=== PATIENT | male | born 1990 | race Caucasian/White ===

== ENCOUNTER 2022-09-08 06:50 | Emergency (ER) | payer MEDICAID, SELFPAY ==
--- NOTE | ~2022-09-08 | CT_ITS ---
EXAMINATION: CT SOFT TISSUE NECK WITHOUT CONTRAST CLINICAL INFORMATION: Difficulty swallowing. COMPARISON: None TECHNIQUE: Helical imaging was performed in the axial plane with generation of coronal and sagittal reformatted images. This CT examination was performed using dose optimization techniques as appropriate, variously including the following: *Automated exposure control *Adjustment of mA and/or kV according to patient size (this includes techniques or standardized protocols for targeted exams where dose is matched to indication/reason for exam; i.e. extremities or head) *Use of iterative reconstruction technique DLP: 612 mGy-cm FINDINGS: The soft palate appears prominent and is either redundant or mildly edematous. The nasopharyngeal soft tissues are also prominent. The oral cavity and remainder of the pharyngeal mucosal space appear relatively normal on this limited noncontrast study. The laryngeal structures are unremarkable. No pathologically enlarged cervical lymph nodes are visible. There are scattered internal jugular chain lymph nodes measuring up to 1 cm in long axis dimension in the axial plane. The parotid and submandibular glands are normal. No abnormal fluid collection is seen. The orbits are normal. The thyroid gland is heterogeneous in attenuation without a discrete visible lesion. The imaged mediastinum and visualized axillae are unremarkable. No acute osseous abnormality is seen. There is a rightward curvature of the cervical spine. The imaged portions of the lungs are clear with mild emphysematous changes. There is periapical disease associated with the tooth roots of the left first maxillary molar. Scattered dental caries are visible. There is periodontal disease of the right second mandibular molar as well. The TMJs are normal. The middle ear cavities and mastoid air cells are well aerated. The imaged portions of the brain demonstrate no acute abnormality. There is a small fluid level in the right maxillary antrum with mild circumferential mucosal wall thickening. Moderate ethmoid sinus mucosal thickening evident bilaterally. There are aerosolized secretions in the right sphenoid sinus. Rightward nasal septal deviation noted. CT/CT soft tissue neck wo IV con IMPRESSION: Limited noncontrast study. Questionable redundancy of the soft palate versus edematous change and prominence of the adenoid tonsils with subsequent significant narrowing of the nasopharyngeal airway. Recommend correlating with direct visual inspection. No bulky cervical adenopathy on this limited noncontrast study. No fluid collections. Nonspecific heterogeneity of the thyroid gland without enlargement. Numerous dental caries and scattered periodontal and periapical lucencies, as described. Recommend followup dental evaluation. Small fluid level in the right maxillary antrum with mild mucosal wall thickening. Moderate ethmoid sinus disease. Correlate for any acute symptoms.
[2022-09-08 06:55] VITALS: BP 140/80; PULSE 87; O2SAT 100
[2022-09-08 07:26] VITALS: BP 137/80; PULSE 96; RESP 16; TEMP 36.6; O2SAT 99; BMI 27.4
[2022-09-08 07:49] LABS: Strep A Nucleic Acid Negative (Negative)
--- NOTE | 2022-09-08 08:26 | ED_ITS ---
HPI - General Adult General Chief complaint: General Medical Stated complaint: flu like symptons/sob Time Seen by Provider: 09/08/22 08:25 Source: patient Mode of arrival: ambulatory Limitations: no limitations History of Present Illness HPI narrative: Patient is a 32 year old assigned male at with no reported medical history presenting to the emergency department today with possible throat swel ling. Patient states that yesterday he was diagnosed with the flu and attempted to have tamiflu filled but couldn't get it filled in [place] with [place] insurance. Patient states that he now feels as though his throat is swelling and he would like it to be checked. Patient denies any dizziness, lightheadedness, abdominal pain, nausea, vomiting, fever, chills, blurry vision, double vision, loss of vision, chest pain, difficulty breathing, shortness of breath, back pain, night sweats, pain with urination, increased urinary frequency, increased urinary urgency, blood in his urine or stool, syncope or a near syncopal episode, recent trauma or falls, bowel incontinence, bladder incontinence, bowel retention, bladder retention, or any other complaints at this time. Onset (ago): day(s) (2) Severity: mild Severity scale (1-10): 3 Quality: dull Relieving factors: none Exacerbating factors: none Associated symptoms: denies other symptoms Treatments prior to arrival: none Related Data Previous Rx's Medication Instructions Recorded doxycycline hyclate 100 mg tablet 100 mg PO BID 7 days #14 tabs 09/08/22 lidocaine HCl 2 % mucosal solution 1.2 ml mucous membrane BID PRN 09/08/22 (Lidocaine Viscous) pain #100 mL prednisone 20 mg tablet 20 mg PO DAILY 7 days #7 tabs 09/08/22 Allergies Allergy/AdvReac Type Severity Reaction Status Date / Time citalopram [From Celexa] Allergy Rash Verified 09/08/22 07:25 Review of Systems Constitutional: Constitutional: Reports no additional constitutional complaints, Denies chills, Denies fever(s) and Denies night sweats Eyes: Eyes: Reports no additional eye complaints, Denies blurry vision, Denies change in vision, Denies diplopia, Denies eye discharge, Denies loss of vision and Denies eye pain ENT: Denies dizziness and Reports sore throat Cardiovascular: Cardiovascular: Reports no additional cardiovascular complaints, Denies chest pain, Denies lightheadedness, Denies Loss of Consciousness and Denies dyspnea Respiratory: Respiratory: Reports no additional respiratory complaints and Denies dyspnea Gastrointestinal: Gastrointestinal: Reports no additional gastrointestinal complaints, Denies abdominal pain, Denies melena, Denies hematochezia, Denies change in bowel habits and Denies change in stool character Genitourinary: Genitourinary: Reports no additional male genitourinary complaints, Denies hematuria, Denies oliguria, Denies difficulty urinating, Denies dysuria, Denies urinary frequency, Denies urinary hesitancy, Denies urinary incontinence and Denies urinary urgency Musculoskeletal: Musculoskeletal: Reports no additional musculoskeletal complaints, Denies numbness and Denies tingling Neurologic: Denies dizziness, Denies loss of vision, Denies numbness and Denies tingling Psychiatric: Psychiatric: Reports no additional psychiatric complaints Endocrine: Endocrine: Reports no additional endocrine complaints Hematologic/Lymphatic: Hematologic/Lymphatic: Reports no additional hematologic/lymphatic complaints Allergic/Immunologic: Allergic/Immunologic: Reports no additional allergic/immunologic complaints [facility] Past Medical History Attestation statement: The following information was validated with the patient. Source: old records reviewed Social History Social History Advance Directives: No Advance Directives Information Provided: No Physical Exam ED Vital Signs: Vital Signs - 24 hr 09/08/22 07:26 Temperature 98 F Pulse Rate 96 Respiratory Rate 16 Blood Pressure 137/80 Pulse Oximetry 99 Oxygen Delivery Method Room Air BMI result Body Mass Index 27.4 Const General: cooperative, no acute distress, alert and awake Nutritional Appearance: well nourished Orientation/consciousness: patient oriented x3 Limitations: no limitations [facility] Head: Yes normal to inspection and Yes atraumatic Ears: hearing grossly normal bilaterally and external ears normal General nose exam: Normal external nose present, no nasal discharge noted and no epistaxis Face and sinus: Yes normal facial exam, No abrasion and No laceration Mouth: Normal oral and palatal mucosa present, no drooling and no muffled voice Throat: Yes posterior oropharynx normal Eyes General: appearance normal, both eyes and all related structures Periorbital: periorbital findings normal Eyelids: Yes eyelids normal Conjunctivae: conjunctivae normal Pupils: Equal, round and reactive pupils present EOM: EOMs intact bilaterally Neck Neck: Yes normal visual inspection, Yes full ROM and Yes no lymphadenopathy Chest Chest palpation & inspection: normal inspection of the chest Resp Effort & Inspection: normal respiratory effort and able to speak in complete sentences Auscultation: clear to auscultation bilaterally Cardio Rate: regular rate Rhythm: regular rhythm GI Inspection: Yes normal to inspection Neuro General: patient oriented x3 and moves all extremities Cranial nerves: Yes Equal, round and reactive pupils present Cognition (Neuro): normal cognition Motor exam (neuro): 5/5 motor strength present throughout Sensory Exam: Normal double simultaneous stimulation for sensation Coordination: [id number] test normal Extrem General: Yes normal to inspection, Yes full ROM and Yes capillary refill normal Psych Appearance: grossly normal Mental Status: mental status grossly normal Affect: normal affect Attitude: cooperative Thought process: Normal thought process present Thought content: Normal thought content present Insight: Good insight present (Psych) Medications Administered Discontinued Medications Generic Name Dose Route Start Last Admin Trade Name Ibanq PRN Reason Stop Dose Admin Lidocaine HCl 15 ml 09/08/22 08:35 09/08/22 08:45 Lidocaine Hcl Viscous 2 % 15 Ml Solution MUCOUS MEM 09/08/22 08:36 15 ml ONCE ONE Administration Methylprednisolone Sodium Succinate 60 mg 09/08/22 08:35 09/08/22 08:45 Methylprednisolone Sod Succ 125 Mg/2 Ml Vial IM 09/08/22 08:36 60 mg ONCE ONE Administration Medical Decision Making Medical Decision Making [facility] Narrative: Patient is a 32 year old assigned male at with no reported medical history presenting to the emergency department today with a sore throat. Patient's physical exam showed extensive poor dentition but was otherwise unremarkable. Patient's rapid strep swab was negative. Patient's soft tissue neck CT showed no acute process in the throat but did show signs of sinusitis. I explained my physical exam findings as well as all test results to the patient. I answered all questions asked by the patient. I stressed the importance of the patient taking his medication as prescribed. I stressed the importance of the patient following up with his primary care provider. I stressed the importance of the patient returning to the emergency department immediately if his symptoms were to worsen or if he were to develop any dizziness, shortness of breath, difficulty breathing, chest pain, blurry vision, loss of vision, nausea, vomiting, abdominal pain, fever, chills, back pain, or any other complaints. Patient verbalized agreement and understanding with this treatment plan and discharge. Differential Diagnoses: Differential diagnosis (sinusitis, influenza) Differential Diagnosis: The differential diagnosis associated with the patient?s presentation includes: Discharge Plan Discharge Clinical Impression: Influenza, Sinusitis Patient Disposition: Home, Self-Care Instructions: Influenza (ED) Additional Instructions: Follow up with your primary care provider. Return to the emergency department immediately if your symptoms worsen or if you develop any dizziness, shortness of breath, difficulty breathing, chest pain, blurry vision, loss of vision, nausea, vomiting, abdominal pain, fever, chills, back pain, or any other complaints. Prescriptions: New doxycycline hyclate 100 mg tablet 100 mg PO BID 7 Days Qty: 14 0RF lidocaine HCl [Lidocaine Viscous] 2 % solution 1.2 ml mucous membrane BID PRN (Reason: pain) Qty: 100 0RF prednisone 20 mg tablet 20 mg PO DAILY 7 Days Qty: 7 0RF Referrals: [facility] [Provider Group] (Call to establish and follow up with a primary care provider. If you already have a primary care provider, please follow up with them. ) [facility] [Provider Group] (Call to establish and follow up with a primary care provider. If you already have a primary care provider, please follow up with them. ) [facility] [Provider Group] (Call to establish and follow up with a primary care provider. If you already have a primary care provider, please follow up with them. ) Stand Alone Forms: Work/School Release Print Language: Arabic
[2022-09-08] MEDS: methylPREDNISolone Sod Succ 125 MG/2 ML VIAL 60 MG IM (08:45)
[2022-09-08] MEDS: Lidocaine HCl Viscous 2 % 15 ML SOLUTION MUCOUS MEM (08:45)
[2022-09-08 10:08] VITALS: BP 128/57; PULSE 89; RESP 14; TEMP 37.3; O2SAT 99
--- NOTE | 2022-09-08 10:16 | PC.NURSE ---
provider updated patient on results of CT SCAN pt aware and agreeable to dc plan. pt reports feeling better after receiving medications here in the ED. aware that he will be sent home on these medications as well. airway patent. speaking in full clear sentences. managing secretions. no acute distress noted.
== END 2022-09-08 10:26 | disposition home or self-care (01) ==
PROVIDERS: Emergency Provider Emergency Medicine
DX: J10.1 Influenza due to other identified influenza virus with other respiratory manifestations (principal); J32.9 Chronic sinusitis, unspecified; R06.02 Shortness of breath; M54.2 Cervicalgia; Z79.899 Other long term (current) drug therapy
CPT/HCPCS: 36415; 70490; 87651; 96372; 99283; 99284; J2930

== ENCOUNTER 2022-09-10 08:45 | Emergency (ER) | payer MEDICAID, SELFPAY ==
--- NOTE | 2022-09-10 08:51 | ED_ITS ---
HPI - Arrhythmia/Palpitations General Chief Complaint: Arrhythmia/Palpitations Stated Complaint: SVT/Flu Time Seen by Provider: 09/10/22 08:49 Source: patient Mode of arrival: ambulatory Limitations: no limitations History of Present Illness HPI narrative: Patient 30 minutes of palpitations, was diagnosed with the flu, 5 days of symptoms. Patient is very anxious. complaint: rapid heart beat Onset (ago): minute(s) Duration: now resolved Severity: moderate Arrhythmia history: SVT Associated symptoms: shortness of breath Treatments prior to arrival: vagal maneuvers Related Data Previous Rx's Medication Instructions Recorded doxycycline hyclate 100 mg tablet 100 mg PO BID 7 days #14 tabs 09/08/22 lidocaine HCl 2 % mucosal solution 1.2 ml mucous membrane BID PRN 09/08/22 (Lidocaine Viscous) pain #100 mL prednisone 20 mg tablet 20 mg PO DAILY 7 days #7 tabs 09/08/22 atenolol 25 mg tablet 25 mg PO DAILY #10 tabs 09/10/22 Allergies Allergy/AdvReac Type Severity Reaction Status Date / Time citalopram [From Celexa] Allergy Rash Verified 09/08/22 07:25 Review of Systems Constitutional: Constitutional: Reports no additional constitutional complaints Eyes: Eyes: Reports no additional eye complaints ENT: Denies dizziness Cardiovascular: Cardiovascular: Reports no additional cardiovascular c omplaints Respiratory: Respiratory: Reports as per HPI Gastrointestinal: Gastrointestinal: Reports no additional gastrointestinal complaints Musculoskeletal: Musculoskeletal: Reports no additional musculoskeletal complaints Integumentary/Breasts: Skin/Breast: Denies rash Neurologic: Reports system reviewed and no additional complaints, except as documented, Denies dizziness and Denies Sensory deficit (Neuro) Psychiatric: Psychiatric: Denies anxiety [facility] Social History Social History Advance Directives: No Advance Directives Information Provided: No Physical Exam Vital Signs: Vital Signs: Last Vital Signs Temp 98 F 09/10/22 08:53 Pulse 76 09/10/22 09:01 Resp 13 09/10/22 09:01 BP 129/74 09/10/22 09:01 Pulse Ox 98 09/10/22 09:01 O2 Del Method 09/10/22 09:01 BMI result Body Mass Index 27.4 Const: Other: very anxious General: healthy appearing Nutritional Appearance: average body habitus Orientation/consciousness: oriented to person and patient oriented x3 Limitations: no limitations HEENT: Head: Yes normal to inspection Ears: external ears normal General nose exam: Normal external nose present Mouth: Normal oral and palatal mucosa present and oropharynx normal Throat: Yes posterior oropharynx normal Eyes: General: appearance normal, both eyes and all related structures Neck: Other: supple Neck: Yes normal visual inspection Chest: Chest palpation & inspection: normal inspection of the chest Resp: Auscultation: clear to auscultation bilaterally Cardio: Jugular venous distension: no JVD Rate: regular rate Rhythm: regular rhythm Heart sounds: S1 normal heart sound present and S2 normal heart sound present GI: Inspection: Yes normal to inspection Palpation (GI): Soft to palpation, nontender and No hepatosplenomegaly present Auscultation: normal bowel sounds : General: Yes no CVA tenderness Back/Spine/Pelvis: Back: no CVA tenderness Skin: General skin exam: no rashes or lesions noted Neuro: General: oriented to person and patient oriented x3 Cranial nerves: Yes CN's II-XII intact bilaterally Motor exam (neuro): 5/5 motor strength pre sent throughout Sensory Exam: No Sensory deficit (Neuro) Extrem: General: Yes normal to inspection Psych: Appearance: grossly normal Course Reevaluation(s) Reevaluation #1: Patient very anxous will place on low dose betablocker for another 10 days for the duration of his viral illness Time: 10:33 Medical Decision Making Medical Decision Making Independent interpretation of EKG, rhythm strip, radiology study: Independent interp EKG,rhythm strip, radiology study I performed an independent interpretation of the: EKG My interpretation is sinus 70, no st or twave changes Discharge Plan Discharge Clinical Impression: Palpitations, Influenza A Patient Disposition: Home, Self-Care Instructions: Heart Palpitations (ED), Influenza (ED) Prescriptions: New atenolol 25 mg tablet 25 mg PO DAILY Qty: 10 0RF No Action doxycycline hyclate 100 mg tablet 100 mg PO BID 7 Days Qty: 14 0RF lidocaine HCl [Lidocaine Viscous] 2 % solution 1.2 ml mucous membrane BID PRN (Reason: pain) Qty: 100 0RF prednisone 20 mg tablet 20 mg PO DAILY 7 Days Qty: 7 0RF Referrals: Physician,Unknown J [Primary Care Provider] - 1 week
[2022-09-10 08:53] VITALS: BP 129/74; PULSE 76; RESP 18; TEMP 36.6; O2SAT 99; BMI 27.4
--- NOTE | 2022-09-10 08:53 | ECG_ITS ---
Test Reason : palpations Blood Pressure : / mmHG Vent. Rate : 070 BPM Atrial Rate : 070 BPM P-R Int : 136 ms QRS Dur : 084 ms QT Int : 382 ms P-R-T Axes : 071 035 025 degrees QTc Int : 412 ms Normal sinus rhythm with sinus arrhythmia Normal ECG No previous ECGs available Referred By: Max Carmona Electronically Signed By:JOELLEN LEVIN MD
[2022-09-10 09:01] VITALS: BP 129/74; PULSE 76; RESP 13; O2SAT 98
[2022-09-10 09:10] LABS: MANUAL DIFF FLAG NO
[2022-09-10 09:13] LABS: Basophils Percent Auto 0.2 % (0-2); Eosinophils Percent Auto 0.1 % (0-4); Hematocrit 42.7 % (42.0-52.0); Hemoglobin 15.2 g/dl (14.0-18.0); Imm Gran Abs Auto 0.07 X10*3/uL (0.00-0.03); Imm Gran Pct Auto 0.5 % (0.0-0.4); Lymphocytes Absolute Auto 4.5 X10*3/uL (1.2-4.9); Lymphocytes Percent Auto 33.6 % (20-40); Mean Corpuscular HGB Conc 35.6 g/dl (31.0-36.0); Mean Corpuscular Hemoglobin 30.3 pg (27.0-33.0); Mean Corpuscular Volume 85.2 fL (80.0-98.0); Mean Platelet Volume 8.9 fL (9.4-12.4); Monocytes Absolute Auto 0.9 X10*3/uL (0.1-1.2); Monocytes Percent Auto 6.5 % (2-11); Neutrophils Absolute Auto 7.9 x10*3/uL (2.0-8.3); Neutrophils Percent Auto 59.1 % (45-73); Platelet Count 273 X10*3/uL (160-400); Red Blood Count 5.01 X10*6/uL (4.60-5.80); Red Cell Distribution Width 12.8 % (11.0-16.0); White Blood Count 13.4 X10*3/uL (4.8-10.8)
[2022-09-10 09:28] LABS: Anion Gap 14 (12-20); Blood Urea Nitrogen 18 mg/dL (9-16); Calcium 9.4 mg/dL (8.4-10.2); Carbon Dioxide 23 mmol/L (22-29); Chloride 110 mmol/L (96-108); Creatinine Clr Calc Pharmacy 118.9; Estimated Glomerular Filt Rate > 60; Glucose Random 90 mg/dL (60-115); Potassium 4.5 mmol/L (3.3-5.1); Sodium 142 mmol/L (135-145)
[2022-09-10 09:36] LABS: Troponin-I High Sensitivity 7.3 ng/L (<3.5-35.0)
[2022-09-10] MEDS: atenoloL 25 MG TABLET PO (10:54)
[2022-09-10 10:55] VITALS: BP 124/71; PULSE 73; RESP 16; O2SAT 97
== END 2022-09-10 11:07 | disposition home or self-care (01) ==
PROVIDERS: Emergency Provider Emergency Medicine
DX: J10.1 Influenza due to other identified influenza virus with other respiratory manifestations (principal); R00.2 Palpitations; Z20.822 Contact with and (suspected) exposure to COVID-19; Z79.899 Other long term (current) drug therapy
CPT/HCPCS: 36415; 80048; 84484; 85025; 93005; 99283; 99284

== ENCOUNTER 2022-09-12 20:56 | Emergency (ER) | payer MEDICAID, SELFPAY ==
[2022-09-12 21:01] VITALS: BP 115/68; PULSE 70; RESP 17; TEMP 36.7; O2SAT 99; BMI 27.4
--- NOTE | 2022-09-12 21:18 | ED_ITS ---
HPI - URI/Sore Throat General Chief Complaint: Upper Respiratory Symptoms Stated Complaint: fever,wheezing,sob,sore throat and glands Time Seen by Provider: 09/12/22 21:13 Source: patient, EMS, RN notes reviewed and old records reviewed Mode of arrival: ambulatory Limitations: no limitations History of Present Illness HPI Narrative: 32-year-old male with no significant past medical history is here today for complaining of sore throat, difficulty swallowing and wheezing. This is his 3rd visit to this lower in the last week and half. Patient was diagnosed with influenza about couple weeks ago, was unable to fill her script for Tamiflu as he does not have [place] insurance. Patient continues with sore throat and swelling of his gland. Soft tissue neck CT scan was done on September 08 that that not show any acute processes except for right mastoid area swelling. Patient denies any SOB, CP, PND, abdominal pain, nausea, vomiting, fever, chills, blurry vision. Patient states that he feels like he is unable to get better. MD elicited complaint: sore throat Onset (ago): week(s) Severity: moderate Related Data Previous Rx's Medication Instructions Recorded doxycycline hyclate 100 mg tablet 100 mg PO BID 7 days #14 tabs 09/08/22 lidocaine HCl 2 % mucosal solution 1.2 ml mucous membrane BID PRN 09/08/22 (Lidocaine Viscous) pain #100 mL prednisone 20 mg tablet 20 mg PO DAILY 7 days #7 tabs 09/08/22 atenolol 25 mg tablet 25 mg PO DAILY #10 tabs 09/10/22 amoxicillin 875 mg-potassium 1 tab PO BID #14 tabs 09/12/22 clavulanate 125 mg tablet ibuprofen 600 mg tablet 600 mg PO Q8H PRN pain #20 tabs 09/12/22 Allergies Allergy/AdvReac Type Severity Reaction Status Date / Time citalopram [From Celexa] Allergy Rash Verified 09/12/22 21:01 Review of Systems Constitutional: Constitutional: Denies weight gain and Denies weight loss ENT: Reports system reviewed and no additional complaints, except as documented Cardiovascular: Cardiovascular: Reports no additional cardiovascular complaints Respiratory: Respiratory: Reports no additional respiratory complaints Gastrointestinal: Gastrointestinal: Reports no additional gastrointestinal complaints Genitourinary: Genitourinary: Reports no additional male genitourinary complaints Musculoskeletal: Musculoskeletal: Reports no additional musculoskeletal complaints Neurologic: Reports system reviewed and no additional complaints, except as documented Psychiatric: Psychiatric: Reports no additional psychiatric complaints Endocrine: Endocrine: Reports no additional endocrine complaints PMFSH Social History Social History Advance Directives: No Advance Directives Information Provided: No Physical Exam Vital Signs: Vital Signs: Last Vital Signs Temp 98.0 F 09/12/22 21:01 Pulse 70 09/12/22 21:01 Resp 17 09/12/22 21:01 BP 115/68 09/12/22 21:01 Pulse Ox 99 09/12/22 21:01 O2 Del Method 09/12/22 21:01 BMI result Body Mass Index 27.4 Const: General: healthy appearing, no acute distress and well developed Nutritional Appearance: well nourished Orientation/consciousness: patient oriented x3 HEENT: Head: Yes normal to inspection, Yes normocephalic and Yes atraumatic Ears: hearing grossly normal bilaterally, external ears normal, right TM abnormal and left TM abnormal General nose exam: Normal external nose present Face and sinus: Yes normal facial exam Mouth: Normal oral and palatal mucosa present, tongue normal and oropharynx normal Teeth and gingiva: poor dentition Throat: Yes posterior oropharynx normal, Yes tonsils normal and Yes uvula midline Eyes: General: appearance normal, both eyes and all related structures Neck: Neck: Yes normal visual inspection, Yes full ROM and Yes trachea midline Thyroid: Thyroid normal Resp: Effort & Inspection: normal respiratory effort, able to speak in complete sentences, no tracheal deviation and symmetric chest movement Auscultation: clear to auscultation bilaterally Cardio: Rate: regular rate Heart sounds: S1 normal heart sound present, S2 normal heart sound present, no gallops and no murmurs GI: Inspection: Yes normal to inspection and No distended Palpation (GI): Soft to palpation, not firm, nontender and No hepatosplenomegaly present Auscultation: normal bowel sounds : General: Yes no CVA tenderness Back/Spine/Pelvis: Back: no CVA tenderness Skin: General skin exam: elasticity normal, turgor normal and dry skin Neuro: General: patient oriented x3 Psych: Appearance: grossly normal Mental Status: mental status grossly normal Speech and movement: Normal speech and movement present Course Course Course Narrative: 32-year-old male with no significant past medical history is here today for complaining of sore throat, difficulty swallowing and wheezing. This is his 3rd visit to this lower in the last week and half. Patient was diagnosed with influenza about couple weeks ago, was unable to fill her script for Tamiflu as he does not have [place] insurance. Patient continues with sore throat and swelling of his gland. Soft tissue neck CT scan was done on September 08 that that not show any acute processes except for right mastoid area swelling. Patient denies any SOB, CP, PND, abdominal pain, nausea, vomiting, fever, chills, blurry vision. Patient states that he feels like he is unable to get better. Bilateral otitis media, right worse than left. Patient was given ketorolac IM and 1st dose of Augmentin. Reevaluation(s) Reevaluation #1: Patient reports to be feeling better after total. Will be sent home with Augmentin. Patient will call dental clinic. List of dental clinics provided to patient. Medications Administered Discontinued Medications Generic Name Dose Route Start Last Admin Trade Name Freq PRN Reason Stop Dose Admin Amoxicillin/Clavulanate Potassium 875 mg 09/12/22 21:30 09/12/22 21:37 Amoxicillin/Potassium Clav 875 Mg Tablet PO 09/12/22 21:31 875 mg ONCE ONE Administration Ketorolac Tromethamine 30 mg 09/12/22 21:26 09/12/22 21:36 Ketorolac Tromethamine 15 Mg/Ml Vial IVPUSH 09/12/22 21:27 30 mg ONCE ONE Administration Discharge Plan Discharge Clinical Impression: Upper respiratory infection, Otitis media, Pharyngitis Patient Disposition: Home, Self-Care Instructions: Pharyngitis (ED), Ear Infection (ED) Additional Instructions: You were seen here today for sore throat and swollen glands. You have your infection bilaterally worse on the right than left. You were given anti- inflammatory medication as well as antibiotic. Make sure that you take all the of the antibiotic till you finish. You may return to emergency department if your symptoms will get worse or if you experience any additional concerning symptoms. Please follow-up with a dentist. List of dental offices provided to you Prescriptions: New amoxicillin-pot clavulanate 875-125 mg tablet 1 tab PO BID Qty: 14 0RF ibuprofen 600 mg tablet 600 mg PO Q8H PRN (Reason: pain) Qty: 20 0RF No Action doxycycline hyclate 100 mg tablet 100 mg PO BID 7 Days Qty: 14 0RF lidocaine HCl [Lidocaine Viscous] 2 % solution 1.2 ml mucous membrane BID PRN (Reason: pain) Qty: 100 0RF prednisone 20 mg tablet 20 mg PO DAILY 7 Days Qty: 7 0RF atenolol 25 mg tablet 25 mg PO DAILY Qty: 10 0RF Discharge Date/Time: 09/12/22 22:08
[2022-09-12] MEDS: Ketorolac Tromethamine 15 MG/ML VIAL 30 MG IVPUSH (21:36)
[2022-09-12] MEDS: Amoxicillin/Potassium Clav 875 MG TABLET PO (21:37)
== END 2022-09-12 22:08 | disposition home or self-care (01) ==
PROVIDERS: Emergency Provider Emergency Medicine
DX: J02.9 Acute pharyngitis, unspecified (principal); H66.93 Otitis media, unspecified, bilateral
CPT/HCPCS: 96372; 99283; 99284; J1885

== ENCOUNTER 2022-09-14 08:24 | Emergency (ER) | payer MEDICAID, SELFPAY ==
[2022-09-14 08:29] VITALS: BP 127/88; PULSE 81; RESP 18; TEMP 35.9; O2SAT 97; BMI 27.4
--- NOTE | 2022-09-14 09:04 | ED_ITS ---
HPI - General Adult General Chief complaint: Skin/Abscess/Foreign Body Stated complaint: Mass growing on throat Time Seen by Provider: 09/14/22 08:39 Source: patient Mode of arrival: ambulatory History of Present Illness HPI narrative: 32-year-old male with a past medical history of influenza A, sinusitis treated with Doxycycline presenting to the ED complaining of continued painful lump to right neck x 1 week. Reports pain with swallowing. Patient states swelling initially started on left side and then progressed to right. Patient was evaluated in our ED on 09/08, 09/10, 09/12 for similar symptoms, had CT on 09/08 which showed sinusitis without other acute findings. Patient reports taking doxycycline, denies picking up any other Rx prescriptions. Denies fever, chills, SOB, intraoral swelling, recent dental procedures, difficulty/inability to swallow, ear pain Onset (ago): week(s) Related Data Previous Rx's Medication Instructions Recorded doxycycline hyclate 100 mg tablet 100 mg PO BID 7 days #14 tabs 09/08/22 lidocaine HCl 2 % mucosal solution 1.2 ml mucous membrane BID PRN 09/08/22 (Lidocaine Viscous) pain #100 mL prednisone 20 mg tablet 20 mg PO DAILY 7 days #7 tabs 09/08/22 atenolol 25 mg tablet 25 mg PO DAILY #10 tabs 09/10/22 amoxicillin 875 mg-potassium 1 tab PO BID #14 tabs 09/12/22 clavulanate 125 mg tablet ibuprofen 600 mg tablet 600 mg PO Q8H PRN pain #20 tabs 09/12/22 Allergies Allergy/AdvReac Type Severity Reaction Status Date / Time citalopram [From Celexa] Allergy Rash Verified 09/12/22 21:01 Review of Systems Review of Systems: Constitutional: No Fever, No Chills, No Fatigue, No Malaise ENT/Mouth: No Ear Pain, No Nasal Congestion, No Sinus Pain, No Hoarseness, + sore throat, No Rhinorrhea, No Swallowing Difficulty, +painful swallowing Eyes: No Eye Pain, No Swelling, No Redness Cardiovascular: No Chest Pain, No SOB, No Dyspnea on Exertion, No Orthopnea, No Edema, No Palpitations Respiratory: No Cough, No Sputum, No Wheezing, No Dyspnea Gastrointestinal: No Nausea, No Vomiting, No Diarrhea, No Constipation, No Abdominal pain Genitourinary: No Dysuria, No Urinary Frequency, No Hesitancy Musculoskeletal: No joint pain, No Myalgias, No Joint Swelling Skin: No Skin Lesions, No rash Neuro: No Weakness, NHo Dizziness, No Headache Yes all other systems are reviewed and are negative Constitutional: Constitutional: Reports as per [facility] [place] Past Medical History Attestation statement: The following information was validated with the patient. Social History Social History Advance Directives: No Advance Directives Information Provided: No Physical Exam ED Vital Signs: Vital Signs - 24 hr 09/14/22 08:29 Temperature 96.6 F L Pulse Rate 81 Respiratory Rate 18 Blood Pressure 127/88 Pulse Oximetry 97 Oxygen Delivery Method Room Air BMI result Body Mass Index 27.4 Const General: cooperative, healthy appearing, no acute distress, alert and awake Orientation/consciousness: patient oriented x3 Limitations: no limitations HENMT Other: + swollen tender lump to right submandibular area. No overlying erythema. No fluctuance/induration. No appreciable intraoral involvement Head: Yes normal to inspection and Yes atraumatic Ears: hearing grossly normal bilaterally, TM normal on the left, mastoids normal, TM abnormal dull on the right and unable to visualize TM on the right (Due to cerumen impaction, cleared) General nose exam: Normal external nose present Face and sinus: Yes normal facial exam Mouth: Normal oral and palatal mucosa present Teeth and gingiva: poor dentition Throat: Yes posterior oropharynx normal, Yes tonsils normal, Yes uvula midline, No peritonsillar mass and No uvula laterally displaced Eyes General: appearance normal, both eyes and all related structures EOM: EOMs intact bilaterally Neck Neck: Yes normal visual inspection, Yes full ROM, Yes no meningeal signs, Yes trachea midline, Yes supple and No anterior neck swelling Resp Effort & Inspection: normal respiratory effort, no respiratory distress, no stridor and no tracheal deviation Auscultation: clear to auscultation bilaterally and no wheezes Cardio Rate: regular rate Heart sounds: S1 normal heart sound present and S2 normal heart sound present Skin Rashes: no rashes Wounds: no wounds Neuro General: patient oriented x3, tone normal and no meningeal signs Gait exam (Neuro): Normal gait present Extrem General: Yes normal to inspection Course Course Course Narrative: -no leukocytosis. Labs otherwise reassuring. CRP minimally elevated to 0.99 Recommend patient continue taking previously prescribed antibiotic. Was given a dose of oral Decadron in the ED. Recommended close ENT follow-up. Results discussed with patient including worrisome signs and symptoms and strict return precautions, and when to return to the emergency department. They verbalized understanding and feel safe for discharge at this time. Medications Administered Discontinued Medications Generic Name Dose Route Start Last Admin Trade Name Freq PRN Reason Stop Dose Admin Dexamethasone Sodium Phosphate 10 mg 09/14/22 09:00 09/14/22 09:13 Dexamethasone Sod Phosphate 10 Mg/Ml Vial IVPUSH 09/14/22 09:01 10 mg ONCE ONE Administration Medical Decision Making Medical Decision Making MDM Narrative: 32-year-old male with a past medical history of influenza A, sinusitis treated with Doxycycline presenting to the ED complaining of continued painful lump to right neck x 1 week. On exam vital signs stable, NAD, nontoxic appearing, talking in complete sentences, no respiratory distress, no stridor, tender palpable lump to right submandibular area without fluctuance or induration, no overlying cellulitis. No appreciable intraoral involvement. Concern for ?Lymphadenopathy or mass. No evidence of [employer]IAN or parotitis. Right TM cloudy, patient currently on antibiotics. Case discussed with Dr. Tubbs Plan: Labs, p.o. Decadron, ENT follow-up, no need for repeat imaging at this time Differential Diagnoses: Differential diagnosis (As above) Lab Attestation: I reviewed the patient's lab results. Medical Decision Making Lab Data Result Diagrams: 09/14/22 09:14 09/14/22 09:14 Labs: Lab Results 09/14/22 09/14/22 09/14/22 Range/Units 09:14 09:14 09:14 WBC 8.8 (4.8-10.8) X10*3/uL RBC 5.46 (4.60-5.80) X10*6/uL Hgb 16.4 (14.0-18.0) g/dl Hct 46.6 (42.0-52.0) % MCV 85.3 (80.0-98.0) fL MCH 30.0 (27.0-33.0) pg MCHC 35.2 (31.0-36.0) g/dl RDW 12.3 (11.0-16.0) % Plt Count 283 (160-400) X10*3/uL MPV 8.4 L (9.4-12.4) fL Immature Gran % (Auto) 1.3 H (0.0-0.4) % Neut % (Auto) 52.0 (45-73) % Lymph % (Auto) 33.3 (20-40) % [place] % (Auto) 11.5 H (2-11) % Eos % (Auto) 1.6 (0-4) % Baso % (Auto) 0.3 (0-2) % Lymph # (Auto) 2.9 (1.2-4.9) X10*3/uL [place] # (Auto) 1.0 (0.1-1.2) X10*3/uL Eos # (Auto) 0.1 (0.0-0.4) X10*3/uL Baso # (Auto) 0.0 (0.0-0.2) X10*3/uL Abs Immat Gran (auto) 0.11 H (0.00-0.03) X10*3/uL Absolute Neuts (auto) 4.6 (2.0-8.3) x10*3/uL Absolute Nucleated RBC 0.000 (0.0-0.012) X10*3/uL Nucleated RBC % (auto) 0.0 (0.0-0.2) /100WBC ESR 7 (0-15) MM/HR Sodium 136 (135-145) mmol/L Potassium 4.4 (3.3-5.1) mmol/L Chloride 101 (96-108) mmol/L Carbon Dioxide 30 H (22-29) mmol/L Anion Gap 9 L (12-20) BUN 10 (9-16) mg/dL Creatinine 0.87 (0.5-1.4) mg/dL Estim Creat Clear Calc 120.2 Estimated GFR > 60 Random Glucose 86 (60-115) mg/dL Calcium 9.4 (8.4-10.2) mg/dL C-Reactive Protein 0.99 H (< or = 0.50) mg/dL Discharge Plan Discharge Clinical Impression: Lump in neck Patient Disposition: Home, Self-Care Instructions: Lymphadenopathy (ED) Additional Instructions: Your blood work is reassuring. Continue taking previously prescribed antibiotics. You need to follow with an ear nose throat specialist, call to make an appointment. If symptoms persist or worsen, he develops shortness of breath, difficulty or inability to swallow return to the emergency department Prescriptions: No Action amoxicillin-pot clavulanate 875-125 mg tablet 1 tab PO BID Qty: 14 0RF ibuprofen 600 mg tablet 600 mg PO Q8H PRN (Reason: pain) Qty: 20 0RF doxycycline hyclate 100 mg tablet 100 mg PO BID 7 Days Qty: 14 0RF lidocaine HCl [Lidocaine Viscous] 2 % solution 1.2 ml mucous membrane BID PRN (Reason: pain) Qty: 100 0RF prednisone 20 mg tablet 20 mg PO DAILY 7 Days Qty: 7 0RF atenolol 25 mg tablet 25 mg PO DAILY Qty: 10 0RF Referrals: Kanchan Mccarthy PA [Physician Convertible Top Installer] - Drew Horowitz PA-C [Physician Convertible Top Installer] - Cristina Mancia MD [Physician] - Interventions: ED Discharge Assessment Last Done: 09/14/22 10:50 Discharge Date/Time: 09/14/22 10:52
[2022-09-14] MEDS: dexAMETHasone sod phosphate 10 MG/ML VIAL IVPUSH (09:13)
[2022-09-14 09:18] LABS: MANUAL DIFF FLAG NO
[2022-09-14 09:26] LABS: Basophils Percent Auto 0.3 % (0-2); Eosinophils Absolute Auto 0.1 X10*3/uL (0.0-0.4); Eosinophils Percent Auto 1.6 % (0-4); Hematocrit 46.6 % (42.0-52.0); Hemoglobin 16.4 g/dl (14.0-18.0); Imm Gran Abs Auto 0.11 X10*3/uL (0.00-0.03); Imm Gran Pct Auto 1.3 % (0.0-0.4); Lymphocytes Absolute Auto 2.9 X10*3/uL (1.2-4.9); Lymphocytes Percent Auto 33.3 % (20-40); Mean Corpuscular HGB Conc 35.2 g/dl (31.0-36.0); Mean Corpuscular Volume 85.3 fL (80.0-98.0); Mean Platelet Volume 8.4 fL (9.4-12.4); Monocytes Percent Auto 11.5 % (2-11); Neutrophils Absolute Auto 4.6 x10*3/uL (2.0-8.3); Platelet Count 283 X10*3/uL (160-400); Red Blood Count 5.46 X10*6/uL (4.60-5.80); Red Cell Distribution Width 12.3 % (11.0-16.0); White Blood Count 8.8 X10*3/uL (4.8-10.8)
[2022-09-14 09:36] LABS: Anion Gap 9 (12-20); Blood Urea Nitrogen 10 mg/dL (9-16); C Reactive Protein 0.99 mg/dL (< or = 0.50); Calcium 9.4 mg/dL (8.4-10.2); Carbon Dioxide 30 mmol/L (22-29); Chloride 101 mmol/L (96-108); Creatinine Clr Calc Pharmacy 120.2; Estimated Glomerular Filt Rate > 60; Glucose Random 86 mg/dL (60-115); Potassium 4.4 mmol/L (3.3-5.1); Sodium 136 mmol/L (135-145)
[2022-09-14 10:31] LABS: Erythrocyte Sedimentation Rate 7 MM/HR (0-15)
== END 2022-09-14 10:52 | disposition home or self-care (01) ==
PROVIDERS: Physician Assistant; Emergency Provider Emergency Medicine
DX: R22.1 Localized swelling, mass and lump, neck (principal)
CPT/HCPCS: 36415; 80048; 85025; 85652; 86140; 99283; J1100